=== PATIENT | female | born 1990 | race African-American/Black ===

== ENCOUNTER 2020-08-27 07:26 | Outpatient (RCR) | payer OTHER, SELFPAY ==
[2020-08-25 09:36] LABS: Beta HCG Quantitative 25.43 mIU/ML
[2020-08-27 08:49] LABS: Beta HCG Quantitative 20.52 mIU/ML
== END 2020-11-23 23:59 | disposition home or self-care (01) ==
LOC: ANHLAB 07:26
PROVIDERS: Visit Provider Obstetrics & Gynecology
DX: O26.859 Spotting complicating pregnancy, unspecified trimester (principal); Z3A.00 Weeks of gestation of pregnancy not specified
CPT/HCPCS: 36415; 84702; 86850; 86900; 86901

== ENCOUNTER 2022-03-02 07:13 | Outpatient (CLI) | payer OTHER, SELFPAY ==
[2022-03-02 09:09] LABS: Hematocrit 31.5 % (37.0-47.0); Hemoglobin 10.3 g/dL (12.0-15.0)
[2022-03-02 09:27] LABS: Glucose 1 Hour PP 50gm Dose 170 mg/dL
[2022-03-02 10:09] LABS: HIV 1/2 Ab P24 Ag Result Negative (Negative)
--- NOTE | 2022-03-02 11:12 | PC.NURSE ---
Have had several conversations with Celia Mora CNM and blood bank regarding this pt's blood type. [facility] has 2 documented O Pos blood types (08/25/20 and 03/02/22). [facility] has a documented lab result of O Neg with a weak D antibody. Celia Mora CNM still wants Rhogam given; blood bank notified and will get Rhogam ready.
[2022-03-02] MEDS: RHO(D) IMMUNE GLOBULIN 300 MCG/2 ML SYRINGE IM (11:40)
== END 2022-03-02 07:14 | disposition home or self-care (01) ==
LOC: ANHLAB 07:24
PROVIDERS: Visit Provider Advanced Practice Midwife
DX: O36.0130 Maternal care for anti-D [Rh] antibodies, third trimester, not applicable or unspecified (principal); Z3A.00 Weeks of gestation of pregnancy not specified; Z36.89 Encounter for other specified antenatal screening
CPT/HCPCS: 36415; 82947; 85014; 85018; 85461; 86703; 90384; 96372; G0432; J2790

== ENCOUNTER 2022-04-28 10:03 | Outpatient (CLI) | payer OTHER, MEDICAID, SELFPAY ==
[2022-04-28 10:29] VITALS: BP 124/87; PULSE 82
[2022-04-28 10:40] LABS: Basophils Percent Auto 0.3 % (0.2-1.2); Eosinophils Percent Auto 0.6 % (0-4.4); Hematocrit 30.4 % (37.0-47.0); Hemoglobin 9.9 g/dL (12.0-15.0); Immature Granulocyte Absolute 0.03 K/mm3 (0.00-0.031); Immature Granulocyte Percent A 0.5 % (0-0.5); Lymphocytes Absolute Auto 1.61 K/mm3 (0.9-3.2); Mean Corpuscular HGB Conc 32.6 g/dl (32-36); Mean Corpuscular Hemoglobin 27.9 pg (26-34); Mean Corpuscular Volume 85.6 fl (80-100); Mean Platelet Volume 11.5 fl (7.4-10.4); Monocytes Absolute Auto 0.6 K/mm3 (0.1-0.6); Monocytes Percent Auto 9.9 % (2.6-8.5); Neutrophils Absolute Auto 4.1 K/mm3 (1.3-6.7); Neutrophils Percent Auto 63.7 % (45.5-73.1); Platelet Count Result 208 k/mm3 (150-375); Red Blood Count 3.55 M/mm3 (4.2-5.4); Red Cell Distribution Width 13.8 % (11.5-14.5); White Blood Count 6.4 K/mm3 (4.5-10.0)
[2022-04-28 10:45] VITALS: BP 121/79; PULSE 89
[2022-04-28 11:02] LABS: Alanine Aminotransferase 17 U/L (6-35); Albumin Level 3.5 g/dL (3.5-5.1); Alkaline Phosphatase 158 U/L (38-126); Anion Gap 10 mmol/L (8-16); Aspartate Amino Transferase 19 U/L (14-36); Bilirubin,Total 1.1 mg/dL (0.2-1.3); Blood Urea Nitrogen 4 mg/dL (7-17); Calcium 8.8 mg/dL (8.4-10.2); Carbon Dioxide 20 mmol/L (22-30); Chloride 105 mmol/L (98-107); Estimated Glomerular Filt Rate > 60; Glucose 103 mg/dL (65-110); Potassium 3.6 mmol/L (3.4-5.0); Sodium 135 mmol/L (137-145); Uric Acid 4.1 mg/dL (2.5-7.5)
[2022-04-28 11:03] VITALS: BP 133/78; PULSE 77
[2022-04-28 11:15] VITALS: BP 121/76; BP 121/79; PULSE 75; PULSE 89
[2022-04-28 11:19] LABS: Appearance Urine Slightly Cloudy (Clear); Bilirubin Urine Negative (Negative); Blood Urine Trace-intact (Negative); Color Urine Yellow (Yellow); Glucose Urine UA Negative (Negative); Ketones Urine Negative (Negative); Leukocyte Esterase Ur 1+ LEU/UL (NEGATIVE); Nitrate Urine Negative (Negative); Protein Urine Negative (Negative); Specific Grav Ur 1.015 (1.001-1.035); pH Urine 6.5 (5.0-9.0)
[2022-04-28 11:24] LABS: Bacteria Urine 4+ /hpf; Mucus Urine Rare /lpf; Squamous Epithelial Cell Urine Occasional /hpf (Few)
[2022-04-28 11:27] LABS: Add Urine Microscopic? YES
[2022-04-28 11:31] LABS: Creatinine Urine 73.6 mg/dL; Total Protein Urine Random 11 mg/dL; Ur Ttl Prot Creatinine Ratio 0.15 mg/mg (0-0.20)
== END 2022-04-28 11:18 | disposition home or self-care (01) ==
LOC: ANHOBOP 10:07 → ANHOBPP 10:08
PROVIDERS: Advanced Practice Midwife; Visit Provider Obstetrics & Gynecology
DX: O13.9 Gestational [pregnancy-induced] hypertension without significant proteinuria, unspecified trimester (principal); Z3A.00 Weeks of gestation of pregnancy not specified
CPT/HCPCS: 36415; 59025; 80053; 81001; 82570; 84156; 84550; 85025; 87086; 87088; 99199

== ENCOUNTER 2022-05-05 09:42 | Outpatient (RCR) | payer OTHER, SELFPAY ==
[2022-04-07 11:37] VITALS: BP 120/80; PULSE 84
--- NOTE | ~2022-05-05 | US_ITS ---
EXAMINATION: US OB BPP wo non-stress DATE: 05/05/2022 10:53 INDICATION: Gestational diabetes TECHNIQUE: Real-time pelvic ultrasound was performed. The interpreting radiologist was not present fo r the study. COMPARISON: None. FINDINGS: There is a single living fetus in vertex presentation. The placenta is anterior. heart rate is 144 beats per minute (bpm). Normal amniotic fluid index of 10.5 cm . Biophysical profile performed by the technologist: breathing (30 sec sustained breathing in 30 minutes): 2 out of 2 movement (3 gross body movements in 30 minutes): 2 out of 2 tone (one episode of eekqxnq-krkyqkepq-fbjfdlp limb movement): 2 out of 2 Amniotic fluid pocket (2 cm): 2 out of 2 Total score: 8 out of 8 IMPRESSION: 1. Single living fetus in vertex presentation with heart rate of 144 bpm. 2. Biophysical profile 8 out of 8. 3. Normal amniotic fluid index of 10.5 cm. Reviewed, dictated and finalized at location B.
[2022-05-05 11:18] VITALS: BP 130/74; PULSE 81
== END 2022-06-23 07:37 | disposition home or self-care (01) ==
LOC: ANHOBOP 09:42
PROVIDERS: Visit Provider Advanced Practice Midwife
DX: O24.419 Gestational diabetes mellitus in pregnancy, unspecified control (principal); O36.8330 Maternal care for abnormalities of the fetal heart rate or rhythm, third trimester, not applicable or unspecified; Z3A.33 33 weeks gestation of pregnancy; O16.3 Unspecified maternal hypertension, third trimester; Z3A.37 37 weeks gestation of pregnancy
CPT/HCPCS: 59025; 76819

== ENCOUNTER 2022-05-09 16:53 | Inpatient (IN) | payer OTHER, MEDICAID, SELFPAY ==
[2022-05-09] VITALS (12 sets, daily range): BP systolic 128–144; BP diastolic 76–92; PULSE 63–77; TEMP 36.5–36.9; BMI 36.2
[2022-05-09 17:36] LABS: Basophils Percent Auto 0.3 % (0.2-1.2); Eosinophils Percent Auto 0.6 % (0-4.4); Hematocrit 33.1 % (37.0-47.0); Hemoglobin 10.6 g/dL (12.0-15.0); Immature Granulocyte Absolute 0.05 K/mm3 (0.00-0.031); Immature Granulocyte Percent A 0.7 % (0-0.5); Lymphocytes Absolute Auto 1.65 K/mm3 (0.9-3.2); Lymphocytes Percent Auto 24.7 % (18.3-44.2); Mean Corpuscular Hemoglobin 27.3 pg (26-34); Mean Corpuscular Volume 85.3 fl (80-100); Mean Platelet Volume 12.1 fl (7.4-10.4); Monocytes Absolute Auto 0.7 K/mm3 (0.1-0.6); Monocytes Percent Auto 11.1 % (2.6-8.5); Neutrophils Absolute Auto 4.2 K/mm3 (1.3-6.7); Neutrophils Percent Auto 62.6 % (45.5-73.1); Platelet Count Result 209 k/mm3 (150-375); Red Blood Count 3.88 M/mm3 (4.2-5.4); Red Cell Distribution Width 14.3 % (11.5-14.5); White Blood Count 6.7 K/mm3 (4.5-10.0)
[2022-05-09 17:40] LABS: Creatinine Urine 131.2 mg/dL; Total Protein Urine Random 24 mg/dL; Ur Ttl Prot Creatinine Ratio 0.18 mg/mg (0-0.20)
[2022-05-09 17:44] LABS: Alanine Aminotransferase 16 U/L (6-35); Albumin Level 3.8 g/dL (3.5-5.1); Alkaline Phosphatase 201 U/L (38-126); Anion Gap 10 mmol/L (8-16); Aspartate Amino Transferase 21 U/L (14-36); Bilirubin,Total 0.9 mg/dL (0.2-1.3); Blood Urea Nitrogen 7 mg/dL (7-17); Calcium 8.8 mg/dL (8.4-10.2); Carbon Dioxide 22 mmol/L (22-30); Chloride 103 mmol/L (98-107); Estimated Glomerular Filt Rate > 60; Glucose 89 mg/dL (65-110); Potassium 3.8 mmol/L (3.4-5.0); Sodium 135 mmol/L (137-145); Uric Acid 4.8 mg/dL (2.5-7.5)
[2022-05-09 17:48] LABS: Add Urine Microscopic? YES; Appearance Urine Cloudy (Clear); Bacteria Urine Trace /hpf; Bilirubin Urine Negative (Negative); Blood Urine Negative (Negative); Color Urine Yellow (Yellow); Glucose Urine UA Negative (Negative); Ketones Urine Trace mg/dL (Negative); Leukocyte Esterase Ur Negative LEU/UL (NEGATIVE); Mucus Urine Rare /lpf; Nitrate Urine Negative (Negative); Protein Urine 2+ mg/dL (Negative); RBC Urine 0-2 /hpf (0-2); Squamous Epithelial Cell Urine Few /hpf (Few); WBC Urine 0-3 /hpf (0-3)
--- NOTE | 2022-05-09 20:19 | LDADM ---
This patient, Kiley Ca, was admitted to Labor/Delivery/Recovery 108 on 05/09/22 at 16:53. Plans for labor, pain management and were discussed with patient. Patient/family oriented to hospital policies and general routines including ID bracelet, bed and alarms, visiting hours, pain management, procedures, bathroom and other care routines, personal items, smoking policy, room service/diet and guest tray routines, security routines, and visiting hours. Patient/Family are encouraged to report perceived risks to care and to ask questions if they do not understand what they are told or what they should do. See OBIX for further documentation.
[2022-05-09] MEDS: DINOPROSTONE 10 MG VAG INSERT VAGINAL (21:06)
[2022-05-09 22:21] LABS: Glucose Point of Care 107 mg/dl (65-105)
[2022-05-10] VITALS (82 sets, daily range): BP systolic 111–154; BP diastolic 55–102; PULSE 46–141; RESP 16; TEMP 36.4–37.6; O2SAT 73–100
[2022-05-10 02:05] LABS: HIV 1/2 Ab P24 Ag Result Negative (Negative)
[2022-05-10] MEDS: CALCIUM CARBONATE (TUMS) 500 MG (200 MG ELEMENTAL) PO (02:37)
[2022-05-10 07:37] LABS: Glucose Point of Care 86 mg/dl (65-105)
[2022-05-10 09:31] LABS: Glucose Point of Care 123 mg/dl (65-105)
[2022-05-10] MEDS: miSOPROStol 25 MCG TABLET VAGINAL (09:38)
[2022-05-10 11:44] LABS: Rapid Plasma Reagin Non-Reactive (NonReactive)
--- NOTE | 2022-05-10 12:21 | WPDOBADMIT ---
Obstetrics - Admit Note Admission Note: record reviewed. No pertinent additions to the history and/or any subsequent changes in the physical findings that are not consistent with the expected course of the were found. IOL, GDMA1, gestational HTN, anticipate vaginal delivery Additions to the history and/or subsequent changes in the physical findings follow. None.
[2022-05-10] MEDS: LACTATED RINGERS 1,000 ML 125 ML IV CONT ×2 (14:12→16:22)
[2022-05-10] MEDS: OXYTOCIN 30 UNITS/NS 500 ML 30 UNITS/500 ML BAG 6 UNITS IV CONT (14:12)
[2022-05-10 15:14] LABS: Glucose Point of Care 77 mg/dl (65-105)
--- NOTE | 2022-05-10 16:22 | WPDANESEPPF ---
Anes - Initial Pre Proc Eval Procedure: labor epidural Date/Time: 05/10/22 16:22 Surgeon: Wyatt Herring MD Pre Op Diagnosis: labor pain Pre Op Diagnosis: PIH Labs Patient Data Age: 31 Gender: F Height: 1.7 m Weight: 105 kg Last Vital Signs Temp 37.3 C 05/10/22 15:00 Pulse 69 05/10/22 16:20 BP 141/84 H 05/10/22 16:20 Pulse Ox 100 05/10/22 16:21 O2 Del Method Room Air 05/09/22 20:12 Allergies Allergy/AdvReac Type Severity Reaction Status Date / Time No Known Allergies Allergy Verified 05/09/22 20:32 Home Medications Medication Instructions Recorded Confirmed Type ferrous sulfate 325 mg (65 mg 325 mg PO 05/02/22 History iron) capsule,extended release prenat.vits,aleksandar,yqx-gthn-wxubr 1 tablet PO DAILY 05/02/22 05/09/22 History valacyclovir 500 mg tablet 500 mg PO Q12H 05/02/22 05/09/22 History (Valtrex) Laboratory Tests 05/09/22 05/09/22 05/09/22 17:17 17:17 17:17 WBC 6.7 K/mm3 K/mm3 (4.5-10.0) RBC 3.88 M/mm3 L M/mm3 (4.2-5.4) Hgb 10.6 g/dL L g/dL (12.0-15.0) Hct 33.1 % L % (37.0-47.0) MCV 85.3 fl fl (80-100) MCH 27.3 pg pg (26-34) MCHC 32.0 g/dl g/dl (32-36) RDW 14.3 % % (11.5-14.5) Plt Count 209 k/mm3 k/mm3 (150-375) MPV 12.1 fl H fl (7.4-10.4) Immature Gran % (Auto) 0.7 % H % (0-0.5) Neut % (Auto) 62.6 % % (45.5-73.1) Lymph % (Auto) 24.7 % % (18.3-44.2) [place] % (Auto) 11.1 % H % (2.6-8.5) Eos % (Auto) 0.6 % % (0-4.4) Baso % (Auto) 0.3 % % (0.2-1.2) Lymph # (Auto) 1.65 K/mm3 K/mm3 (0.9-3.2) [place] # (Auto) 0.7 K/mm3 H K/mm3 (0.1-0.6) Eos # (Auto) 0.0 K/mm3 K/mm3 (0-0.3) Baso # (Auto) 0.0 K/mm3 K/mm3 (0.0-0.1) Abs Immat Gran (auto) 0.05 K/mm3 H K/mm3 (0.00-0.031) Absolute Neuts (auto) 4.2 K/mm3 K/mm3 (1.3-6.7) Absolute Nucleated RBC 0.0 K/mm3 K/mm3 (0.0-0.012) Nucleated RBC % 0.0 % % (0.0-0.2) Sodium Potassium Chloride Carbon Dioxide Anion Gap BUN Creatinine Estim Creat Clear Calc Estimated GFR Glucose POC Capillary Glucose Uric Acid Calcium Total Bilirubin AST ALT Alkaline Phosphatase Total Protein Albumin Urine Color Yellow (Yellow) Urine Appearance Cloudy H (Clear) Urine pH 5.0 (5.0-9.0) Ur Specific [place] 1.020 (1.001-1.035) Urine Protein 2+ mg/dL H mg/dL (Negative) Urine Glucose (UA) Negative mg/dL mg/dL (Negative) Urine Ketones Trace mg/dL mg/dL (Negative) Ur Blood (Man) Negative (Negative) Urine Nitrate Negative (Negative) Urine Bilirubin Negative (Negative) Urine Urobilinogen 2.0 mg/dL H mg/dL (<2.0) Ur Leukocyte Esterase Negative YULIYA/UL YULIYA/UL (NEGATIVE) Urine RBC 0-2 /hpf /hpf (0-2) Urine WBC 0-3 /hpf /hpf (0-3) Ur Squamous Epith Cells Few /hpf /hpf (Few) Urine Bacteria Trace /hpf /hpf Urine Mucus Rare /lpf /lpf U Random Total Protein 24 mg/dL mg/dL Urine Creatinine 131.2 mg/dL mg/dL Protein/Creat Ratio 2 0.18 mg/mg mg/mg (0-0.20) RPR HIV 1&2 Ab/P24 Ag 4thGn Blood Type Antibody Screen 05/09/22 05/09/22 05/09/22 17:17 17:17 19:40 WBC RBC Hgb Hct MCV MCH MCHC RDW Plt Count MPV Immature Gran % (Auto) Neut % (Auto)
[2022-05-10 17:11] LABS: Glucose Point of Care 82 mg/dl (65-105)
--- NOTE | 2022-05-10 19:00 | PM.OBPRVD ---
OB - Delivery Note Procedure Delivery date: 05/10/22 Procedure: Events: Gestational Diabetes and Gestational Hypertension Induction method: Per Misoprostol Protocol and Per Cervidil Protocol Delivery augmentation: Pitocin Delivery monitor: External FHT and External Uterine Route of delivery: Laceration Description: None Specimen: Yes Quantitative Blood Loss (ml): 110 Anesthesia type: Epidural Disposition: Floor Baby Date of : 05/10/22 Time of : 18:44 Weeks of gestation at delivery: 38 Infant gender: Female Weight (pounds): 6 Weight (ounces): 11 presentation: vertex position: Right Occiput Anterior Placenta delivery description: Spontaneous Cord Vessel Description: 3 Vessels, Nuchal Cord, Reduced, Clamped/Cut and Delayed Cord Clamping score one minute: 9 score five minutes: 9 Narrative: mom and baby stable and doing skin to skin
[2022-05-10 19:06] LABS: Amphetamine Screen Urine Negative (Negative); Barbiturate Screen Urine Negative (Negative); Benzodiazepines Screen Urine Negative (Negative); Cannabinoid Screen Urine Negative (Negative); Cocaine Screen Urine Negative (Negative); Methadone Screen Urine Negative (Negative); Opiate Screen Urine Negative (Negative); Phencyclidine Screen Urine Negative (Negative)
[2022-05-10] MEDS: ACETAMINOPHEN 325 MG TABLET 650 MG PO (19:38)
[2022-05-10] MEDS: WITCH HAZEL 40 PADS 1 PAD TOPICAL (20:59)
[2022-05-10] MEDS: BENZOCAINE 20% AER SPR (*SP) 56 GM CAN 1 SPRAY TOPICAL (20:59)
[2022-05-11 05:10] LABS: Hematocrit 27.2 % (37.0-47.0); Hemoglobin 8.9 g/dL (12.0-15.0)
[2022-05-11] MEDS: IBUPROFEN 600 MG TABLET PO ×2 (06:26→17:51)
--- NOTE | 2022-05-11 08:05 | WPDANLDPN2 ---
Anes-Prog Note L&D Date/Time: 05/11/22 08:05 Comfortable throughout: labor and delivery Neuraxial method: epidural Epidural/Spinal procedure site: clean & non-tender Neuro status: Neuro function grossly intact. Cardiovascular status: normal Respiratory status: normal Airway patency: baseline Mental status: baseline Post-Op hydration status: normal Vital Signs: Last Vital Signs Temp 36.4 C 05/10/22 22:45 Pulse 82 05/10/22 22:45 Resp 16 05/10/22 22:45 BP 131/71 05/10/22 22:45 Pulse Ox 100 05/10/22 18:40 O2 Del Method Room Air 05/09/22 20:12 Pain score (VAS): 4/10, just received pain medication I/O: Intake & Output 05/10/22 05/11/22 05/11/22 23:59 07:59 15:59 Intake Total 1500 Output Total 1010 Balance 490 Post-procedural complaints: none Patient feedback: Patient satisfied with anesthetic care.
[2022-05-11 08:10] VITALS: BP 130/76; PULSE 66; RESP 18; TEMP 36.8; O2SAT 100
--- NOTE | 2022-05-11 08:23 | PM.OBPNVD ---
OB - PN: Subj Subjective Date/time seen: 05/11/22 08:23 Patient comments: no complaints, pain well controlled, incisional pain, tolerating diet and flatus present OB - PN: Obj Data Labs CBC & Chem 7: 05/11/22 04:18 05/09/22 17:17 Labs: Laboratory Results - last 24 hr 05/09/22 05/10/22 05/10/22 19:40 09:22 15:06 Hgb Hct POC Capillary Glucose 123 H 77 Urine Opiates Screen Urine Methadone Screen Ur Barbiturates Screen Ur Phencyclidine Scrn Ur Amphetamine Screen U Benzodiazepines Scrn Urine Cocaine Screen U Cannabinoids Screen RPR Non-reactive Blood Type Antibody Screen Screen Baby's Blood Type Baby's LAURA Doses of RhIg Required 05/10/22 05/10/22 05/11/22 16:57 18:25 04:18 Hgb 8.9 L Hct 27.2 L POC Capillary Glucose 82 Urine Opiates Screen Negative Urine Methadone Screen Negative Ur Barbiturates Screen Negative Ur Phencyclidine Scrn Negative Ur Amphetamine Screen Negative U Benzodiazepines Scrn Negative Urine Cocaine Screen Negative U Cannabinoids Screen Negative RPR Blood Type Antibody Screen Screen Baby's Blood Type Baby's LAURA Doses of RhIg Required 05/11/22 04:18 Hgb Hct POC Capillary Glucose Urine Opiates Screen Urine Methadone Screen Ur Barbiturates Screen Ur Phencyclidine Scrn Ur Amphetamine Screen U Benzodiazepines Scrn Urine Cocaine Screen U Cannabinoids Screen RPR Blood Type O Positive Antibody Screen Negative Screen Negative Baby's Blood Type O pos Baby's LAURA Negative Doses of RhIg Required 1 OB - PN A/P Plan day: 1 Plan: routine care Comments: No problems, routine care Time Spent With Patient Time: Total time spent is greater than 50% in coordination of care (as documented) at patient's floor/unit and/or counseling patient: Exam Const: General: comfortable, no acute distress and alert Resp: Effort & Inspection: normal respiratory effort Auscultation: no crackles, no rales and no rhonchi Cardio: Rate: regular rate Heart sounds: no click, no murmurs and no rubs GI: Inspection: non-distended GI Palp: No Tenderness to palpation present (GI) Auscultation: normal bowel sounds Other: Incision - CDI Extrem: General: normal to inspection, no pedal edema and no calf tenderness
[2022-05-11] MEDS: POLYSACCHARIDE IRON COMPLEX 150 MG CAPSULE PO ×2 (08:29→17:51)
[2022-05-11] MEDS: MULTIVIT/MIN/PREN/FOL AC/IRON TABLET 1 TAB PO (08:29)
[2022-05-11] MEDS: DOCUSATE SODIUM 100 MG CAPSULE PO ×2 (08:29→17:51)
[2022-05-11] MEDS: RHO(D) IMMUNE GLOBULIN 300 MCG/2 ML SYRINGE IM (10:41)
[2022-05-11 12:04] VITALS: BP 130/80; PULSE 92; RESP 18; TEMP 36.8; O2SAT 100
[2022-05-11 16:10] VITALS: BP 118/80; PULSE 86; RESP 16; TEMP 36.8; O2SAT 99
--- NOTE | 2022-05-11 16:36 | PCCCNOTE ---
Care Coordination. Pt. referred to CC for positive marijuana in beginning of . Met with pt. and FOB at bedside. Pt. UDS negative here and no UDS for baby. Pt. and FOB report having all necessary baby care items. They are working on moving in together. They both report great family support. They don't think they qualify for WIC, but did provide resources. FOB wanted paternity testing information, so it was provided. They deny any other CC needs.
[2022-05-11 20:25] VITALS: BP 129/81; PULSE 88; RESP 16; TEMP 37
[2022-05-12] MEDS: IBUPROFEN 600 MG TABLET PO ×2 (02:42→08:40)
[2022-05-12 07:10] VITALS: BP 137/88; PULSE 80; RESP 16; TEMP 37.2; O2SAT 100
--- NOTE | 2022-05-12 07:41 | PM.OBPNVD ---
OB - PN: Subj Subjective Date/time seen: 05/12/22 07:41 s/p vaginal delivery day 2 OB - PN: Obj Data Labs CBC & Chem 7: 05/11/22 04:18 05/09/22 17:17 Labs: Laboratory Results - last 24 hr 05/11/22 04:18 Blood Type O Positive Antibody Screen Negative Screen Negative Baby's Blood Type O pos Baby's LAURA Negative Doses of RhIg Required 1 OB - PN A/P Plan day: 2 Plan: routine care and discharge home Time Spent With Patient Time: Total time spent is greater than 50% in coordination of care (as documented) at patient's floor/unit and/or counseling patient: Review of Systems Review of Systems: All systems reviewed & are unremarkable except as noted in HPI and below Exam Const: General: cooperative, healthy appearing and comfortable
--- NOTE | 2022-05-12 07:43 | PM.OBDSVD ---
DS: Admitting Diagnosis Discharge Date 05/12/22 Admitting Diagnosis IOL, HTN OB - DS: Summary OB Procedures : None OB Procedures Intrapartum: Spontaneous Vag Delivery OB Procedures: : None Time Spent with Patient Time attestation: Total time spent providing and/or coordinating discharge services: DS: Data Data Completed and Pending Pending studies at discharge: Pending at discharge 05/10/22 18:50 Surgical [PTH] Routine Labs on day of discharge: Labs from last 24 hours 05/11/22 04:18 Blood Type O Positive Antibody Screen Negative Screen Negative Baby's Blood Type O pos Baby's LAURA Negative Doses of RhIg Required 1 Discharge Plan Discharge Attending physician on discharge: Wyatt Herring Discharging Clinician: Krystal Mora Patient Disposition: Home, Self-Care Activity: pelvic rest Diet: regular Patient Instructions: Antibiotic Form Stand Alone Forms: General Discharge Information Follow-up/Referrals: Krystal Mora, CNM [Certified Nurse Release And Technical Records Clerk] - 4 Weeks Discharge Medications: Continued ferrous sulfate 325 mg (65 mg iron) Capsule, Extended Release 325 mg PO #2 Tablet 1 tablet PO DAILY valacyclovir [Valtrex] 500 mg Tablet 500 mg PO Q12H Date of admission: 05/09/22 16:53 Primary Care Provider: Tim Sampson MD Admitting Provider: Wyatt Herring Attending physician on admission: Wyatt Herring Condition: Stable
[2022-05-12] MEDS: POLYSACCHARIDE IRON COMPLEX 150 MG CAPSULE PO (08:37)
[2022-05-12] MEDS: DOCUSATE SODIUM 100 MG CAPSULE PO (08:37)
[2022-05-12] MEDS: MULTIVIT/MIN/PREN/FOL AC/IRON TABLET 1 TAB PO (08:37)
[2022-05-12] MEDS: TETANUS,DIPHTHERIA,AC PERTUSSIS ADULT (0.5 ML) BOOSTRIX IM (08:37)
--- NOTE | 2022-05-12 11:51 | PC.NURSE ---
[id number] Mother led the conversation with her experience and plan to feed her so far and her ability to independently latch without discomfort. Reminded parents to use good handwashing technique to prevent infection. Mother is feeding appropriately for growth of and understands stimulating infant to eat if needed. has had appropriate feedings in the last 24 hours meets the outcomes for weight, output and jaundice at this time. Mother states she is confident to continue effectively her at home or when to call for assistance and denies any additional assistance or education at this time. Reinforced understanding of milk production, transition of milk, signs of adequate intake, prevention/relief of engorgement, responsive after visualizing feeding cues, the different methods of stimulating infant to breastfeed 2-3 hours after the start of the last feeding, community resources, medication information reviewed per [employer], the risk of marijuana use and when to call a provider using the resource of the mom and baby guide/[facility] website. Mother voiced understanding of the education shared. Mother will call for assessment of the next . Reported to the primary RN. [phone] Consulted with patient to assess needs related to . Reviewed positioning and alignment, supporting breast, off-centered (asymmetrical latch), tucking in close to mother's body and leading with the chin with big, open, wide gape. latched optimally to the left breast in cross cradle position. Education given to mother of how to visualize suck/swallow ratios and drinking at the breast. was able to maintain latch without discomfort to mother. Nipple care reviewed with optimal latch and good positioning, comfort, healing with warm, wet washcloth to rinse breast, then leave open to air-dry, colostrum may be left on nipples to dry but have clean hands when touching the nipple/breast as needed. Resources used to facilitate learning were used from the visual pitcures, QR codes, mom and baby guide. Mother voiced understanding of when to call for assistance. Reported to the primary RN.
--- NOTE | 2022-05-12 12:03 | PC.NURSE ---
Patient viewed the discharge video Mother & Baby Care, The First Two Weeks . Patient was given the opportunity and encouraged to ask questions. Patient verbalized understanding of information shared and has been given the mother/baby guide for home reference.
[2022-05-13 09:54] VITALS: BP 136/86; PULSE 83; RESP 20; TEMP 37.2; O2SAT 99
== END 2022-05-12 12:32 | disposition home or self-care (01) | DRG 807 ==
LOC: ANHOBOP 16:57 → ANHOBPP 16:58 → ANHOBOP 18:53 → ANHLDR 18:53 → ANHOB2 05-10 21:55
PROVIDERS: Advanced Practice Midwife; Admitting Provider Obstetrics & Gynecology; Visit Provider Obstetrics & Gynecology
DX: O24.429 Gestational diabetes mellitus in childbirth, unspecified control (principal); Z37.0 Single live birth; Z3A.38 38 weeks gestation of pregnancy; O13.4 Gestational [pregnancy-induced] hypertension without significant proteinuria, complicating childbirth; O36.8330 Maternal care for abnormalities of the fetal heart rate or rhythm, third trimester, not applicable or unspecified; O69.81X0 Labor and delivery complicated by cord around neck, without compression, not applicable or unspecified
CPT/HCPCS: 36415; 80053; 80307; 81001; 82570; 82948; 84112; 84156; 84550; 85014; 85018; 85025; 85461; 86592; 86703; 86850; 86900; 86901; 87086; 87088; 88307; 90384; 90715; A9270; G0432; J2590; J2790; J2795; J7120